=== PATIENT | female | born 1965 | race Caucasian/White ===

== ENCOUNTER 2016-07-25 12:59 | Emergency (ER) | payer OTHER ==
[~2016-07-25] VITALS: Ht 170.2 cm; Wt 104.3 kg
[~2016-07-25 12:59] MED LIST: ACETAMINOPHEN-1 EAC1 PO; AMBIEN 10 MG TA10 MG PO; CELEXA40 MG PO; DIABETA 5MG TABL5 MG PO; FLEXERIL PO; FLONASE 0.05%50 MCG NASAL; FLOXIN OTI0.3 %/5 M1 OT; GLUCOPHAGE XR500 MG; HYDROCHLOROTH12.5 M1 PO; HYDROCHLOROTHIA25 M2 PO; LEVAQUIN 500 M500 MG PO; LIDODERM 5%1 PATCH TOP; LISINOPRIL10 MG PO; LISINOPRIL20 MG PO; LISINOPRIL5 MG PO; MACROBID 100 M100 M1 PO; MAXALT MLT ODT10 M1 PO; MEDROLDOSEPACK PO; NORCO 10-325 T1 EACH PO; NORCO 5-325 TA1 EACH PO; NORTRIPTYLINE H25 M3 PO; PERCOCET 5-3251 EACH PO; PHENERGAN 25 MG25 M1 PO; PREDNISONE 20 M20 MG PO; PREDNISONE50 MG PO; QUININE HCL1 GM; RITALIN5 MG; SENNA-S TABLET1 EACH; TESSALON PERLE100 MG PO; TRAMADOL 50 MG50 MG PO; TYLENOL W/CODEI1 TA2 PO; VALIUM2 MG PO; VENTOLIN HFA 1818 GM INH; XANAX 0.25 MG0.25 MG PO; ZPAK PO; [UNRECOGNIZED DRUG - REMARK]
[2016-07-25] MEDS ORDERED: NORCO 5-325 TA1 EACH PO (14:03)
== END 2016-07-25 14:20 | disposition home or self-care (01) ==
LOC: ER 12:59
DX: S83.92XA Sprain of unspecified site of left knee, initial encounter (principal); S93.402A Sprain of unspecified ligament of left ankle, initial encounter; J45.909 Unspecified asthma, uncomplicated; E11.9 Type 2 diabetes mellitus without complications; Z90.89 Acquired absence of other organs; Z90.710 Acquired absence of both cervix and uterus; G89.29 Other chronic pain; Z88.5 Allergy status to narcotic agent; Z88.6 Allergy status to analgesic agent; Z88.1 Allergy status to other antibiotic agents; W18.30XA Fall on same level, unspecified, initial encounter; Y93.89 Activity, other specified; Y92.89 Other specified places as the place of occurrence of the external cause; Y99.9 Unspecified external cause status

== ENCOUNTER 2016-08-04 13:21 | Emergency (ER) | payer OTHER ==
[~2016-08-04] VITALS: Ht 167.6 cm; Wt 104.3 kg
--- NOTE | ~2016-08-04 | EKG ---
[address] [place] [address] ELECTROCARDIOGRAM REPORT Name: JUAN MIMS Room #: DEP [facility]#: [id number] Admission: 08/04/16 Attend Phys: Discharge: 08/04/16 Date of : 61 Report #: [id number] THIS REPORT FOR: //name// [facility] ED Test Date: 2016-08-04 Test Time: 13:23:57 Pat Name: JUAN MIMS Department: Room: Gender: F [employer]: [employer]IT[employer] : 1965 Requested By: Mala Devlin Order Number: [id number] MD: Juice Florence Measurements Intervals [place] Rate: 98 P: 69 [place]: 160 QRS: 14 QRSD: 101 T: 52 QT: 354 QTc: 453 Interpretive Statements Sinus rhythm Abnormal inferior Q waves Baseline wander in lead(s) V1 Compared to ECG 05/19/2016 20:41:25 no significant change was found Electronically Signed On 08-05-2016 8:10:48 CDT by Juice Florence [email or web address] <ELECTRONICALLY SIGNED> By: Juice Florence MD, [facility] 08/05/16 0810 1323 1323 Juice Florence MD, [facility] /EPI
[2016-08-04] MEDS ORDERED: LISINOPRIL-HCT1 EAC2 PO (13:53)
[2016-08-04] MEDS ORDERED: ADVAIR HFA115 MCG/21 INH (13:53)
[2016-08-04] MEDS ORDERED: HYDROCODONE-AP1 EAC6 PO (13:54)
[2016-08-04 14:08] LABS: ABSOLUTE NEUTROPHILS 2.8 thou/uL (1.4-8.2); BASOPHILS 0.7 % (0.0-2.0); EOSINOPHILS 2.4 % (0.0-3.0); HEMATOCRIT 40.4 % (37.0-47.0); HEMOGLOBIN 13.7 gm/dL (12.0-15.0); LYMPHOCYTES 40.8 % (24.0-44.0); MANUAL DIFF NO; MCH 31.2 pg (26.0-34.0); MCHC 33.9 g/dL (28.0-37.0); MONOCYTES 7.2 % (1.0-8.0); PLATELET COUNT 206 thou/uL (150-400); POLYS 48.9 % (36.0-66.0); RDW 13.8 % (10.5-14.5); WBC 5.7 thou/uL (4.0-11.0)
[2016-08-04 14:16] LABS: ANION GAP 8 mmol/L (7-16); BUN 13 mg/dL (7-18); CALCIUM 8.9 mg/dL (8.5-10.1); CHLORIDE 106 mmol/L (98-107); CO2 27 mmol/L (21-32); GLUCOSE 118 mg/dL (74-106); POTASSIUM 3.3 mmol/L (3.5-5.1); SODIUM 141 mmol/L (136-145)
[2016-08-04 14:24] LABS: TROPONIN-I < 0.04 ng/mL (<0.04-0.07)
[2016-08-04] MEDS ORDERED: ULTRAM 50MG TAB50 MG PO (15:22)
[2016-08-04] MEDS ORDERED: MOBIC7.5 MG PO (15:22)
== END 2016-08-04 16:02 | disposition home or self-care (01) ==
LOC: ER 13:21
PROVIDERS: Emergency Medicine
DX: R07.89 Other chest pain (principal); G89.29 Other chronic pain; J45.909 Unspecified asthma, uncomplicated; E11.9 Type 2 diabetes mellitus without complications; Z90.49 Acquired absence of other specified parts of digestive tract; Z90.710 Acquired absence of both cervix and uterus; Z88.5 Allergy status to narcotic agent; Z88.6 Allergy status to analgesic agent; Z88.8 Allergy status to other drugs, medicaments and biological substances

== ENCOUNTER 2016-11-15 13:42 | Emergency (ER) | payer OTHER ==
[~2016-11-15] VITALS: Ht 170.2 cm; Wt 105.2 kg
[~2016-11-15 13:42] MED LIST changes: +ADVAIR HFA115 MCG/21 INH; +HYDROCODONE-AP1 EAC6 PO; +LISINOPRIL-HCT1 EAC2 PO; +MOBIC7.5 MG PO; +ULTRAM 50MG TAB50 MG PO
[2016-11-15 14:23] LABS: URINE BILIRUBIN NEGATIVE (Negative); URINE BLOOD NEGATIVE (Negative); URINE COLOR YELLOW; URINE GLUCOSE-RANDOM* NEGATIVE (Negative); URINE KETONES NEGATIVE (Negative); URINE LEUKOCYTES-REFLEX TRACE (Negative); URINE PROTEIN (DIPSTICK) NEGATIVE (Negative); URINE SPECIFIC GRAVITY <= 1.005 (1.003-1.035); URINE UROBILINOGEN 0.2 E.U./dl (0.2-1.0)
[2016-11-15 15:07] LABS: CALCIUM 9.7 mg/dL (8.5-10.1); CREATININE 0.9 mg/dL (0.6-1.0)
[2016-11-15 15:10] LABS: ABSOLUTE NEUTROPHILS 3.7 thou/uL (1.4-8.2); BASOPHILS 0.9 % (0.0-2.0); EOSINOPHILS 1.3 % (0.0-3.0); HEMATOCRIT 43.7 % (37.0-47.0); HEMOGLOBIN 14.6 gm/dL (12.0-15.0); LYMPHOCYTES 37.5 % (24.0-44.0); MCH 30.3 pg (26.0-34.0); MCHC 33.5 g/dL (28.0-37.0); MCV 90.4 fL (80.0-100.0); MONOCYTES 8.6 % (1.0-8.0); PLATELET COUNT 236 thou/uL (150-400); POLYS 51.7 % (36.0-66.0); RBC 4.83 mil/uL (4.20-5.00); RDW 13.4 % (10.5-14.5); WBC 7.2 thou/uL (4.0-11.0)
[2016-11-15 15:11] LABS: MANUAL DIFF NO
[2016-11-15 15:13] LABS: ALBUMIN 3.7 g/dL (3.4-5.0); TOTAL BILIRUBIN 0.5 mg/dL (<0.1-1.0); TOTAL PROTEIN 7.8 g/dL (6.4-8.2)
== END 2016-11-15 17:21 | disposition home or self-care (01) ==
LOC: ER 13:42
PROVIDERS: Emergency Medicine
DX: R10.31 Right lower quadrant pain (principal); G89.29 Other chronic pain; M54.9 Dorsalgia, unspecified; J45.909 Unspecified asthma, uncomplicated; E11.9 Type 2 diabetes mellitus without complications; F10.99 Alcohol use, unspecified with unspecified alcohol-induced disorder; Z90.49 Acquired absence of other specified parts of digestive tract; Z90.710 Acquired absence of both cervix and uterus; Z88.5 Allergy status to narcotic agent; Z88.6 Allergy status to analgesic agent; Z88.8 Allergy status to other drugs, medicaments and biological substances

== ENCOUNTER 2017-04-18 16:55 | Emergency (ER) | payer OTHER ==
[~2017-04-18] VITALS: Ht 170.2 cm; Wt 107.0 kg
[~2017-04-18 16:55] MED LIST changes: +BENTYL 20 MG TA20 M1 PO; +PERCOCET 7.5-31 EACH PO
[2017-04-18 16:57] VITALS: BP 141/94
[2017-04-18] MEDS ORDERED: ADVAIR HFA 230M12 GM INH (17:28)
[2017-04-18] MEDS ORDERED: PRINIVIL20 MG PO (17:28)
[2017-04-18] MEDS ORDERED: PROAIR HFA8.5 GM INH (17:29)
[2017-04-18] MEDS ORDERED: TESSALON PERLE100 MG PO (17:57)
[2017-04-18] MEDS ORDERED: PROVENTIL HFA6.7 G1 INH (17:57)
== END 2017-04-18 18:15 | disposition home or self-care (01) ==
LOC: ER 16:55
DX: J40 Bronchitis, not specified as acute or chronic (principal); E11.9 Type 2 diabetes mellitus without complications; Z90.49 Acquired absence of other specified parts of digestive tract; Z90.710 Acquired absence of both cervix and uterus; Z88.5 Allergy status to narcotic agent; Z88.6 Allergy status to analgesic agent; Z91.041 Radiographic dye allergy status

== ENCOUNTER 2018-06-27 15:48 | Emergency (ER) | payer OTHER ==
[~2018-06-27] VITALS: Ht 170.2 cm; Wt 106.6 kg
[~2018-06-27 15:48] MED LIST changes: +ADVAIR HFA 230M12 GM INH; +PRINIVIL20 MG PO; +PROAIR HFA8.5 GM INH; +PROVENTIL HFA6.7 G1 INH
[2018-06-27 15:49] VITALS: BP 130/88
[2018-06-27] MEDS ORDERED: PREDNISONE 10 M10 MG PO (16:30)
[2018-06-27] MEDS ORDERED: NORCO 5-325 TA1 EACH PO (16:30)
== END 2018-06-27 16:44 | disposition home or self-care (01) ==
LOC: ER 15:48
DX: M25.472 Effusion, left ankle (principal); M25.462 Effusion, left knee; M13.862 Other specified arthritis, left knee; M54.9 Dorsalgia, unspecified; G89.29 Other chronic pain; J45.909 Unspecified asthma, uncomplicated; E11.9 Type 2 diabetes mellitus without complications; Z90.49 Acquired absence of other specified parts of digestive tract; Z90.710 Acquired absence of both cervix and uterus; Z88.5 Allergy status to narcotic agent; Z88.6 Allergy status to analgesic agent; Z88.8 Allergy status to other drugs, medicaments and biological substances

== ENCOUNTER 2019-01-02 09:33 | Emergency (ER) | payer OTHER ==
[~2019-01-02] VITALS: Ht 167.6 cm; Wt 103.4 kg
[~2019-01-02 09:33] MED LIST changes: +PREDNISONE 10 M10 MG PO
[2019-01-02] MEDS ORDERED: NYAMYC15 GM TOP (11:31)
[2019-01-02] MEDS ORDERED: NORCO 5-325 TA1 EAC1 PO (11:32)
[2019-01-02 14:29] VITALS: BP 157/78
== END 2019-01-02 14:29 | disposition home or self-care (01) ==
LOC: ER 09:33
DX: B37.89 Other sites of candidiasis (principal); J45.909 Unspecified asthma, uncomplicated; E78.00 Pure hypercholesterolemia, unspecified; E11.9 Type 2 diabetes mellitus without complications; G89.29 Other chronic pain; M54.9 Dorsalgia, unspecified; Z90.49 Acquired absence of other specified parts of digestive tract; Z90.710 Acquired absence of both cervix and uterus; Z88.5 Allergy status to narcotic agent; Z88.1 Allergy status to other antibiotic agents; Z88.6 Allergy status to analgesic agent; Z88.8 Allergy status to other drugs, medicaments and biological substances

== ENCOUNTER 2020-07-07 10:28 | Emergency (ER) | payer OTHER ==
[~2020-07-07] VITALS: Ht 167.6 cm; Wt 105.7 kg
[~2020-07-07 10:28] MED LIST changes: +NORCO 5-325 TA1 EAC1 PO; +NYAMYC15 GM TOP
[2020-07-07 11:15] LABS: ABSOLUTE NEUTROPHILS 5.6 thou/uL (1.4-8.2); BASOPHILS 0.6 % (0.0-2.0); EOSINOPHILS 1.2 % (0.0-3.0); HEMOGLOBIN 13.7 gm/dL (12.0-15.0); LYMPHOCYTES 19.9 % (24.0-44.0); MCH 30.4 pg (26.0-34.0); MCHC 33.5 g/dL (28.0-37.0); MCV 90.7 fL (80.0-100.0); MONOCYTES 8.5 % (1.0-8.0); PLATELET COUNT 200 thou/uL (150-400); POLYS 69.8 % (36.0-66.0); RBC 4.52 mil/uL (4.20-5.00); RDW 13.9 % (10.5-14.5); WBC 8.1 thou/uL (4.0-11.0)
[2020-07-07 11:25] LABS: CALCIUM 8.4 mg/dL (8.5-10.1); CREATININE 0.9 mg/dL (0.6-1.0)
[2020-07-07 11:31] LABS: ALBUMIN 3.4 g/dL (3.4-5.0); POTASSIUM 4.2 mmol/L (3.5-5.1); TOTAL BILIRUBIN 0.8 mg/dL (0.2-1.0); TOTAL PROTEIN 7.4 g/dL (6.4-8.2)
[2020-07-07] MEDS ORDERED: AMOXICILLIN875 MG PO (11:57)
[2020-07-07 11:59] VITALS: BP 141/84
== END 2020-07-07 11:58 | disposition home or self-care (01) ==
LOC: ER 10:28
PROVIDERS: Emergency Medicine
DX: J02.0 Streptococcal pharyngitis (principal); I10 Essential (primary) hypertension; G89.29 Other chronic pain; J45.909 Unspecified asthma, uncomplicated; E11.9 Type 2 diabetes mellitus without complications; Z91.040 Latex allergy status; Z88.5 Allergy status to narcotic agent; Z88.6 Allergy status to analgesic agent; Z88.8 Allergy status to other drugs, medicaments and biological substances; Z79.899 Other long term (current) drug therapy; Z90.49 Acquired absence of other specified parts of digestive tract; Z90.710 Acquired absence of both cervix and uterus

== ENCOUNTER 2020-07-31 13:38 | Emergency (ER) | payer OTHER ==
[~2020-07-31] VITALS: Ht 167.6 cm; Wt 120.2 kg
[~2020-07-31 13:38] MED LIST changes: +AMOXICILLIN875 MG PO
[2020-07-31] MEDS ORDERED: NEURONTIN 300M300 M2 PO (14:51)
[2020-07-31] MEDS ORDERED: LIPITOR 20 MG T20 M1 PO (14:51)
[2020-07-31] MEDS ORDERED: ADVAIR 250-501 EACH INH (14:52)
[2020-07-31] MEDS ORDERED: IRON160 M1 PO (14:53)
[2020-07-31 14:55] LABS: ABSOLUTE NEUTROPHILS 7.6 thou/uL (1.4-8.2); BASOPHILS 0.9 % (0.0-2.0); EOSINOPHILS 0.9 % (0.0-3.0); HEMATOCRIT 40.5 % (37.0-47.0); HEMOGLOBIN 13.7 gm/dL (12.0-15.0); LYMPHOCYTES 18.2 % (24.0-44.0); MCH 31.1 pg (26.0-34.0); MCHC 33.7 g/dL (28.0-37.0); MCV 92.3 fL (80.0-100.0); MONOCYTES 9.5 % (1.0-8.0); PLATELET COUNT 233 thou/uL (150-400); POLYS 70.5 % (36.0-66.0); RBC 4.39 mil/uL (4.20-5.00); RDW 14.3 % (10.5-14.5); WBC 10.8 thou/uL (4.0-11.0)
[2020-07-31 15:07] LABS: CALCIUM 8.8 mg/dL (8.5-10.1); CREATININE 1.1 mg/dL (0.6-1.0); POTASSIUM 3.9 mmol/L (3.5-5.1)
[2020-07-31 15:14] LABS: ALBUMIN 3.5 g/dL (3.4-5.0); TOTAL BILIRUBIN 0.9 mg/dL (0.2-1.0); TOTAL PROTEIN 7.5 g/dL (6.4-8.2)
[2020-07-31] MEDS ORDERED: PROAIR HFA8.5 GM INH (15:26)
[2020-07-31 15:53] VITALS: BP 107/62
== END 2020-07-31 15:55 | disposition home or self-care (01) ==
LOC: ER 13:38
PROVIDERS: Emergency Medicine
DX: R05 Cough (principal); Z20.822 Contact with and (suspected) exposure to COVID-19; J02.9 Acute pharyngitis, unspecified; R51.9 Headache, unspecified; J45.909 Unspecified asthma, uncomplicated; E11.9 Type 2 diabetes mellitus without complications; Z90.711 Acquired absence of uterus with remaining cervical stump; Z90.49 Acquired absence of other specified parts of digestive tract; Z88.5 Allergy status to narcotic agent; Z88.8 Allergy status to other drugs, medicaments and biological substances; Z91.040 Latex allergy status; Z91.048 Other nonmedicinal substance allergy status; Z79.899 Other long term (current) drug therapy

== ENCOUNTER 2020-09-30 08:33 | Emergency (ER) | payer OTHER ==
[~2020-09-30] VITALS: Ht 167.6 cm; Wt 104.3 kg
[~2020-09-30 08:33] MED LIST changes: +ADVAIR 250-501 EACH INH; +CEPHALEXIN500 MG PO; +HYDROCODON-ACE1 EAC7 PO; +IRON160 M1 PO; +LIPITOR 20 MG T20 M1 PO; +NEURONTIN 300M300 M2 PO
[2020-09-30 08:37] VITALS: BP 111/75
[2020-09-30] MEDS ORDERED: FLEXERIL PO (10:16)
[2020-09-30] MEDS ORDERED: MOBIC15 MG PO (10:16)
== END 2020-09-30 10:18 | disposition home or self-care (01) ==
LOC: ER 08:33
DX: S16.1XXA Strain of muscle, fascia and tendon at neck level, initial encounter (principal); G89.29 Other chronic pain; J45.909 Unspecified asthma, uncomplicated; E11.9 Type 2 diabetes mellitus without complications; Z88.5 Allergy status to narcotic agent; Z91.040 Latex allergy status; Z88.8 Allergy status to other drugs, medicaments and biological substances; Z79.899 Other long term (current) drug therapy; Z90.710 Acquired absence of both cervix and uterus; V49.88XA Car occupant (driver) (passenger) injured in other specified transport accidents, initial encounter; Y93.89 Activity, other specified; Y92.413 State road as the place of occurrence of the external cause; Y99.9 Unspecified external cause status

== ENCOUNTER 2020-10-19 10:26 | Emergency (ER) | payer OTHER ==
[~2020-10-19] VITALS: Ht 167.6 cm; Wt 107.0 kg
[~2020-10-19 10:26] MED LIST changes: +MOBIC15 MG PO
[2020-10-19 10:28] VITALS: BP 152/87
[2020-10-20] MEDS ORDERED: MEDROLDOSEPACK PO (14:34)
[2020-10-20] MEDS ORDERED: PROAIR HFA8.5 GM INH (14:34)
== END 2020-10-19 11:21 | disposition home or self-care (01) ==
LOC: ER 10:26
DX: U07.1 COVID-19 (principal); J45.909 Unspecified asthma, uncomplicated; E11.9 Type 2 diabetes mellitus without complications; Z98.890 Other specified postprocedural states; Z79.51 Long term (current) use of inhaled steroids; Z79.899 Other long term (current) drug therapy; Z88.6 Allergy status to analgesic agent; Z91.040 Latex allergy status; Z88.5 Allergy status to narcotic agent; Z88.8 Allergy status to other drugs, medicaments and biological substances; Z91.048 Other nonmedicinal substance allergy status

== ENCOUNTER 2020-10-20 12:53 | Emergency (ER) | payer OTHER ==
[~2020-10-20] VITALS: Ht 167.6 cm; Wt 107.0 kg
[2020-10-20 12:54] VITALS: BP 126/78
[2020-10-20] MEDS ORDERED: MEDROLDOSEPACK PO (14:34)
[2020-10-20] MEDS ORDERED: PROAIR HFA8.5 GM INH (14:34)
== END 2020-10-20 14:33 | disposition home or self-care (01) ==
LOC: ER 12:53
DX: U07.1 COVID-19 (principal); R06.02 Shortness of breath; J45.909 Unspecified asthma, uncomplicated; E11.9 Type 2 diabetes mellitus without complications; Z98.890 Other specified postprocedural states; Z79.51 Long term (current) use of inhaled steroids; Z79.899 Other long term (current) drug therapy; Z88.6 Allergy status to analgesic agent; Z88.5 Allergy status to narcotic agent; Z88.8 Allergy status to other drugs, medicaments and biological substances; Z91.048 Other nonmedicinal substance allergy status

== ENCOUNTER 2020-10-29 07:54 | Emergency (ER) | payer OTHER ==
[~2020-10-29] VITALS: Ht 167.6 cm; Wt 104.3 kg
== END 2020-10-29 10:04 | disposition home or self-care (01) ==
LOC: ER 07:54
DX: R05 Cough (principal); Z20.822 Contact with and (suspected) exposure to COVID-19; J45.909 Unspecified asthma, uncomplicated; E11.9 Type 2 diabetes mellitus without complications; Z90.49 Acquired absence of other specified parts of digestive tract; Z90.710 Acquired absence of both cervix and uterus; Z79.2 Long term (current) use of antibiotics; Z79.899 Other long term (current) drug therapy; Z88.6 Allergy status to analgesic agent; Z88.1 Allergy status to other antibiotic agents; Z91.040 Latex allergy status

== ENCOUNTER 2020-11-05 09:34 | Emergency (ER) | payer OTHER ==
[~2020-11-05] VITALS: Ht 167.6 cm; Wt 104.3 kg
[2020-11-05 09:34] VITALS: BP 155/88
== END 2020-11-05 10:26 | disposition home or self-care (01) ==
LOC: ER 09:34
PROVIDERS: Student in an Organized Health Care Education/Training Program
DX: U07.1 COVID-19 (principal); G89.29 Other chronic pain; J45.909 Unspecified asthma, uncomplicated; E11.9 Type 2 diabetes mellitus without complications; Z90.89 Acquired absence of other organs; Z90.710 Acquired absence of both cervix and uterus; Z88.5 Allergy status to narcotic agent; Z88.6 Allergy status to analgesic agent; Z91.048 Other nonmedicinal substance allergy status

== ENCOUNTER 2020-12-17 08:52 | Emergency (ER) | payer OTHER ==
[~2020-12-17] VITALS: Ht 167.6 cm; Wt 104.3 kg
[2020-12-17 08:57] VITALS: BP 172/79
== END 2020-12-17 09:30 | disposition home or self-care (01) ==
LOC: ER 08:52
DX: J02.9 Acute pharyngitis, unspecified (principal); J45.909 Unspecified asthma, uncomplicated; E11.9 Type 2 diabetes mellitus without complications; Z90.49 Acquired absence of other specified parts of digestive tract; Z90.710 Acquired absence of both cervix and uterus; Z79.899 Other long term (current) drug therapy; Z91.040 Latex allergy status; Z88.5 Allergy status to narcotic agent; Z88.6 Allergy status to analgesic agent

== ENCOUNTER 2021-01-18 12:58 | Emergency (ER) | payer OTHER ==
[~2021-01-18] VITALS: Ht 167.6 cm; Wt 104.3 kg
[2021-01-18] MEDS ORDERED: PHENERGAN 25 MG25 M1 PO (15:32)
[2021-01-18 16:37] VITALS: BP 162/96
== END 2021-01-18 16:43 | disposition home or self-care (01) ==
LOC: ER 12:58
DX: G43.909 Migraine, unspecified, not intractable, without status migrainosus (principal); J45.909 Unspecified asthma, uncomplicated; E11.9 Type 2 diabetes mellitus without complications; Z98.890 Other specified postprocedural states; Z90.710 Acquired absence of both cervix and uterus; Z86.16 Personal history of COVID-19; Z79.51 Long term (current) use of inhaled steroids; Z79.1 Long term (current) use of non-steroidal anti-inflammatories (NSAID); Z79.899 Other long term (current) drug therapy; Z88.5 Allergy status to narcotic agent; Z88.8 Allergy status to other drugs, medicaments and biological substances; Z88.9 Allergy status to unspecified drugs, medicaments and biological substances; Z88.6 Allergy status to analgesic agent; Z88.3 Allergy status to other anti-infective agents; Z91.041 Radiographic dye allergy status; Z91.040 Latex allergy status